=== PATIENT | male | born 1950 | race Caucasian/White ===

== ENCOUNTER 2017-04-01 08:15 | Day surgery (SDC) | payer MEDICARE, BC ==
[2017-04-01] MEDS ORDERED: PROPOFOL 500 MG/50 ML EMU IV ONE (08:17)
[2017-04-01 10:24] VITALS: BP 122/56; PULSE 65; RESP 20; TEMP 97; O2SAT 96
== END 2017-04-01 10:45 | disposition home or self-care (01) | DRG 951 ==
LOC: SURG 08:15
PROVIDERS: ATTEND Surgery
DX: Z12.11 Encounter for screening for malignant neoplasm of colon (principal); K57.30 Diverticulosis of large intestine without perforation or abscess without bleeding; Z80.0 Family history of malignant neoplasm of digestive organs; Z86.010 Personal history of colon polyps
CPT/HCPCS: J2704